=== PATIENT | male | born 1955 | race Two or more races ===

== ENCOUNTER 2022-07-18 13:27 | Emergency (ER) | payer OTHER ==
[~2022-07-18] VITALS: Ht 170.2 cm; Wt 90.9 kg
[~2022-07-18 13:27] MED LIST: ASPI-247; LISI10TA34; PIOG15TA38
[2022-07-18] MEDS ORDERED: PROPOFOL 10 MG/ML 20 ML IV ONE (17:45)
[2022-07-18] MEDS ORDERED: KETAMINE 50mg/ML 10ml Vial (500mg/10ml) IV ONE (17:45)
[2022-07-18] MEDS ORDERED: HYDROmorphone HCL 2 MG/ML VL/or syr IV ONE (17:45)
[2022-07-18] MEDS ORDERED: SODIUM CHLORIDE 0.9% 250 ML IV ONE (20:22)
[2022-07-18 22:00] VITALS: BP 140/65
== END 2022-07-18 22:25 | disposition home or self-care (01) ==
LOC: ER 13:27
DX: S53.115A Anterior dislocation of left ulnohumeral joint, initial encounter (principal); E11.9 Type 2 diabetes mellitus without complications; I10 Essential (primary) hypertension; Z79.899 Other long term (current) drug therapy; Z86.73 Personal history of transient ischemic attack (TIA), and cerebral infarction without residual deficits; Z90.49 Acquired absence of other specified parts of digestive tract; Z98.890 Other specified postprocedural states; W18.39XA Other fall on same level, initial encounter; Y93.89 Activity, other specified; Y92.89 Other specified places as the place of occurrence of the external cause; Y99.8 Other external cause status
CPT/HCPCS: 24600; 73060; 73070; 73080; 73090; 82962; 96374; 99285; J1170; J2704; J7050; 96375